=== PATIENT | female | born 1955 | race Caucasian/White ===

== ENCOUNTER 2017-09-15 10:11 | Day surgery (SDC) | payer BC ==
[~2017-09-15 10:11] MED LIST: Bupivacaine 0.25%/EPINEPHrine 1:200,000 10 ML SDV INJECT ONE; Bupivacaine 0.5% 10 ML SDV ONE; Bupivacaine 25%/EPINEPHrine/PF 30 ML ONE; Clindamycin Phosphate in D5W 600 MG in Premix Bag 1 BAG IV ONE; EPINEPHrine 1 MG/ML SDV ONE; Gentamicin 40 MG/ML 2 ML Vial ONE; Lidocaine 2% 5 ML SDV ONE; Midazolam 1 MG/ML 2 ML SDV ONE; Ondansetron 4 MG Tab.DIS PO PRN; Ondansetron 4 MG/2 ML SDV IVPUSH PRN; Ondansetron 4 MG/2 ML SDV ONE; Propofol 200 MG/20 ML SDV ONE; Rocuronium 10 MG/ML 10 ML Syringe ONE; Succinylcholine 200 MG/10 ML MDV ONE; ceFAZolin 1 GM Vial ONE; diphenhydrAMINE 25 MG Cap PO PRN; fentaNYL 250 MCG/5 ML SDV ONE
--- NOTE | 2017-09-15 10:39 | PCM.PREANE ---
Preanesthetic Assessment - Anesthesia/Transfusion/Family Hx Anesthesia History: Prior Anesthesia Without Reaction Other Type of Anesthesia Reaction Comment: limited jaw opening due to previous surgery for TMJ Family History of Anesthesia Reaction: No Transfusion History: No Prior Transfusion(s) - Review of Systems General: No Symptoms Pulmonary: No Symptoms Cardiovascular: No Symptoms Gastrointestinal: No Symptoms Neurological: No Symptoms Other: Reports: None - Physical Assessment NPO Status Date: 09/14/17 O2 Sat by Pulse Oximetry: 98 Respiratory Rate: 16 Vital Signs: Last Vital Signs Temp 36.5 C 09/15/17 10:31 Pulse 88 09/15/17 10:31 Resp 16 09/15/17 10:31 BP 143/77 H 09/15/17 10:31 Pulse Ox 98 09/15/17 10:31 Height: 1.7 m Weight: 69.4 kg ASA Class: 2 Mental Status: Alert & Oriented x3 Airway Class: Mallampati = 3 Dentition: Reports: Normal Dentition ROM/Head Extension: Limited/Partial Lungs: Clear to Auscultation, Normal Respiratory Effort Cardiovascular: Regular Rate, Regular Rhythm - Allergies Allergies/Adverse Reactions: Allergies Allergy/AdvReac Type Severity Reaction Status Date / Time morphine Allergy Nausea Verified 09/11/17 12:27 Penicillins Allergy Anaphylactic Verified 09/11/17 12:27 Shock - Anesthesia Plan Pre-Op Medication Ordered: None - Acknowledgements Anesthesia Type Planned: General Anesthesia Pt an Appropriate Candidate for the Planned Anesthesia: Yes Alternatives and Risks of Anesthesia Discussed w Pt/Guardian: Yes Pt/Guardian Understands and Agrees with Anesthesia Plan: Yes Additional Comments: has limited mouth opening but can open 2 fingerbreaths, should be able to use videolaryngoscopy for intubation. PreAnesthesia Questionnaire HEENT History: Reports: Other (See Below) Other HEENT History: wears glasses Gastrointestinal History: Reports: None Genitourinary History: Reports: None Musculoskeletal History: Reports: Arthritis Neurological History: Reports: Migraines Oncologic (Cancer) History: Reports: Breast - Past Surgical History Head Surgeries/Procedures: Reports: Other (See Below) Other HEENT Surgeries/Procedures: had major jaw surgery due to TMJ, (plate and screws in jaw) GI Surgical History: Reports: Appendectomy Female Surgical History: Reports: Breast Biopsy, Hysterectomy Other Female Surgeries/Procedures: hx laparotomy with oophorectomy and appy, hysterectomy, breast lumpectomy with sentinel node bx, otto cath placement for breast cancer tx, and removal of port, - SUBSTANCE USE Smoking Status *Q: Never Smoker Recreational Drug Use History: No - HOME MEDS Home Medications: Home Meds Alendronate Sodium 70 mg PO WEEKLY 09/11/17 [History] Calcium Carbonate/Vitamin D3 [Calcium 600 + Vit D Tablet] 2 tab PO BID 09/11/17 [History] Cholecalciferol (Vitamin D3) [Vitamin D3] 5,000 units PO DAILY 09/11/17 [History ] Ibuprofen 1 tab PO ASDIRECTED PRN 09/11/17 [History] Magnesium Citrate 400 mg PO DAILY 09/11/17 [History] Multivitamin [Multivitamins] 1 tab PO DAILY 09/11/17 [History] - CURRENT (IN HOUSE) MEDS Current Meds: Current Medications Diphenhydramine HCl (Benadryl) 25 mg PO Q6H PRN PRN Reason: Itching Hydromorphone HCl (Dilaudid) 0.5 mg IVPUSH Q2H PRN PRN Reason: pain severe Lactated Ringer's (Ringers, Lactated) 1,000 mls @ 125 mls/hr IV ASDIRECTED NIKITA Ibuprofen (Motrin) 600 mg PO Q6H PRN PRN Reason: pain - moderate Ondansetron HCl (Zofran Odt) 4 mg PO Q4H PRN PRN Reason: Nausea/Vomiting Ondansetron HCl (Zofran) 4 mg IVPUSH Q4H PRN PRN Reason: Nausea Discontinued Medications Bacitracin (Bacitracin) Confirm Administered Dose 50,000 units .ROUTE .STK-MED ONE Stop: 09/15/17 09:11 Bupivacaine HCl (Sensorcaine-Mpf 0.5%) Confirm Administered Dose 10 ml .ROUTE .STK-MED ONE Stop: 09/15/17 07:15 Bupivacaine HCl/Epinephrine Bitart (Marcaine 0.25%/Epinephrine 1:200,000) 10 ml INJECT ONETIME ONE Stop: 09/15/17 08:01 Cefazolin Sodium (Ancef) Confirm Administered Dose 1 gm .ROUTE .STK-MED ONE Stop: 09/15/17 09:10 Epinephrine HCl (Adrenalin) Confirm Administered Dose 1 mg .ROUTE .STK-MED ONE Stop: 09/15/17 09:10 Fentanyl (Sublimaze) Confirm Administered Dose 250 mcg .ROUTE .STK-MED ONE Stop: 09/15/17 08:12 Gentamicin Sulfate (Gentamicin) Confirm Administered Dose 80 mg .ROUTE .STK-MED ONE Stop: 09/15/17 09:09 Clindamycin Phosphate 600 mg/ (Premix) 50 mls @ 150 mls/hr IV ONETIME ONE Stop: 09/15/17 08:19 Bupivacaine HCl/Epinephrine Bitart (Sensorc Mpf 0.25%-Epi 1:690888) Confirm Administered Dose 30 mls @ as directed .ROUTE .STK-MED ONE Stop: 09/15/17 07:15 Bupivacaine HCl/Epinephrine Bitart (Sensorc Mpf 0.25%-Epi 1:290626) Confirm Administered Dose 30 mls @ as directed .ROUTE .STK-MED ONE Stop: 09/15/17 09:11 Lidocaine (Xylocaine-Mpf 2%) Confirm Administered Dose 5 ml .ROUTE .STK-MED ONE Stop: 09/15/17 08:12 Midazolam HCl (Versed 1 Mg/Ml) Confirm Administered Dose 2 mg .ROUTE .STK-MED ONE Stop: 09/15/17 08:12 Ondansetron HCl (Zofran) Confirm Administered Dose 4 mg .ROUTE .STK-MED ONE Stop: 09/15/17 08:12 Propofol (Diprivan 20 Ml) Confirm Administered Dose 200 mg .ROUTE .STK-MED ONE Stop: 09/15/17 08:12 Rocuronium [place] (Zemuron) Confirm Administered Dose 100 mg .ROUTE .STK-MED ONE Stop: 09/15/17 08:12 Succinylcholine Chloride (Quelicin) Confirm Administered Dose 200 mg .ROUTE .STK -MED ONE Stop: 09/15/17 08:12
[2017-09-15] MEDS: Lactated Ringers 1,000 ML IV SCH ×2 (10:55→17:54)
[2017-09-15] MEDS ORDERED: ePHEDrine 50 MG/ML SDV ONE (11:20)
[2017-09-15] MEDS ORDERED: fentaNYL 100 MCG/2 ML SDV IVPUSH PRN (11:41)
[2017-09-15] MEDS ORDERED: Glycopyrrolate 0.2 MG/ML SDV ONE ×2 (11:52→13:49)
[2017-09-15] MEDS ORDERED: fentaNYL 250 MCG/5 ML SDV ONE (12:08)
[2017-09-15] MEDS ORDERED: Neostigmine Methylsulfate 1 MG/ML 5 ML Syringe ONE (13:49)
[2017-09-15] MEDS ORDERED: HYDROmorphone 2 MG/ML SDV ONE (13:54)
[2017-09-15] MEDS ORDERED: Dexamethasone 4 MG/ML 5 ML MDV ONE (13:55)
--- NOTE | 2017-09-15 14:52 | PCM.OPNOTE ---
- General Post-Op/Procedure Note Date of Surgery/Procedure: 09/15/17 Operative Procedure(s): Right breast mastectomy - Dr Garcia. Right breast immediate breast reconstruction with implant reconstruction with allomax and left breast lift for symmetry. 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
--- NOTE | 2017-09-15 14:54 | PCM.POSTAN ---
POST ANESTHESIA ASSESSMENT - MENTAL STATUS Mental Status: Alert - RESPIRATORY Respiratory Status: Respiratory Rate WNL - CARDIOVASCULAR CV Status: Pulse Rate WNL - GASTROINTESTINAL GI Status: No Symptoms - POST OP HYDRATION Hydration Status: Adequate & Stable
--- NOTE | 2017-09-15 15:04 | MY ---
EXAMINATION: Right breast specimen mammogram HISTORY: Postop COMPARISON: 08/02/2017 TECHNIQUE: Single image provided FINDINGS/IMPRESSION: A specimen mammogram demonstrates the clip and calcifications of concern near th e center of the sample.
[2017-09-15] MEDS: Ibuprofen 600 MG Tab PO PRN ×2 (17:10→18:53)
[2017-09-15] MEDS ORDERED: Promethazine 25 MG Tab PO PRN (17:35)
[2017-09-15] MEDS ORDERED: Scopolamine 1.5 MG Transdermal Patch TRDERM PRN (17:35)
[2017-09-15] MEDS ORDERED: Acetaminophen/HYDROcodone 325-5 MG Tab PO PRN (17:35)
[2017-09-15] MEDS ORDERED: Promethazine 25 MG/ML SDV IM ONE (18:19)
[2017-09-15] MEDS: HYDROmorphone 1 MG/ML Syringe IVPUSH PRN (19:46)
--- NOTE | 2017-09-15 20:17 | OR ---
SURGEON: RUTH EHSS MD DATE OF PROCEDURE: 09/15/2017 PREOPERATIVE DIAGNOSIS: Ductal carcinoma in situ of right breast. POSTOPERATIVE DIAGNOSIS: Ductal carcinoma in situ of right breast. PROCEDURE PERFORMED: Right breast mastectomy. FACING GRINDER: MARGIE Jimenez SECONDARY SURGEON: Denisse Obrien MD ESTIMATED BLOOD LOSS: 25 mL. FLUIDS: See anesthesia record. FINDINGS: Right breast mastectomy. COMPLICATIONS: None. INDICATIONS: The patient is a 62-year-old female with a past medical history significant for right-sided breast cancer. She had undergone a lumpectomy and radiation. She now presents with DCIS of the right breast. Given her previous radiation exposure, she is no longer a candidate for a lumpectomy and will need to undergo a mastectomy. The patient met with me regarding this. She visited with our plastic surgeon and after discussion of the risks and benefits, would like to undergo a right mastectomy with immediate breast reconstruction. I explained the procedure, expected perioperative course, and risks including bleeding, infection, or damage to surrounding structures. The patient visited with Dr. Denisse Obrien regarding the portion of the procedure with her. She verbalized understanding and wishes to proceed. PROCEDURE IN DETAIL: The patient was brought to the operating room and placed on the OR table in supine position. A time-out was completed verifying the patient's name, age, date of , allergies, and procedure to be performed. General endotracheal anesthesia was induced. The chest was prepped and draped in usual standard fashion. I anesthetized the area of my incision with 0.5% Marcaine plain. A 10 blade was used to make an elliptical incision around the patient's previous lumpectomy scar. Cautery was used to dissect down to the level of the subcutaneous fat. Skin flaps were then raised superiorly, medially, inferior, and laterally within the fascial plane between the adipose tissue of the breast and skin. The skin flaps were then raised and the dissection taken down to the chest wall. Laterally, this was taken down the lateral border of the latissimus dorsi muscle. Superiorly, it was taken to the level of the clavicle and medially was taken to the border of the sternum, and anteriorly to the inframammary breast ridge. The breast tissue was then taken off the chest wall in medial to lateral fashion. The pathology specimen was then marked for orientation. The previous scar and associated skin were anterior. A double short silk suture was placed at the 12 o'clock position. A double long suture was placed in the 3 o'clock position. A single looped suture was placed in the 6 o'clock position and a single long suture was placed in the 9 o'clock position. This was then sent to pathology. Electrocautery was used to achieve hemostasis. The case was then turned over to Dr. Denisse Obrien, and her department assistant, Yanni Foster. Please see her dictation for the remainder of the case. LINDA ROMERO /[id number]
[2017-09-15] MEDS: Cyclobenzaprine 5 MG Tab PO SCH (21:59)
[2017-09-16] MEDS: Lactated Ringers 1,000 ML IV SCH (02:02)
[2017-09-16] MEDS: HYDROmorphone 1 MG/ML Syringe IVPUSH PRN (02:03)
[2017-09-16] MEDS: Cyclobenzaprine 5 MG Tab PO SCH (06:34)
--- NOTE | 2017-09-16 07:15 | PCM48HPAN ---
Post Anesthesia Note - EVALUATION WITHIN 48HRS OF ANESTHETIC Vital Signs in Normal Range: Yes Patient Participated in Evaluation: Yes Respiratory Function Stable: Yes Airway Patent: Yes Cardiovascular Function Stable: Yes Hydration Status Stable: Yes Pain Control Satisfactory: Yes Nausea and Vomiting Control Satisfactory: Yes Mental Status Recovered: Yes Resp Rate: 18
--- NOTE | 2017-09-16 08:27 | PCM.DCSUM1 ---
Discharge Summary - Discharge Data Discharge Disposition: Home, Self-Care 01 Condition: Good - Discharge Diagnosis/Problem(s) (1) DCIS (ductal carcinoma in situ) of breast SNOMED Code(s): 623336941, 629848146 ICD Code: D05.10 - INTRADUCTAL CARCINOMA IN SITU OF UNSPECIFIED BREAST Status: Acute Current Visit: Yes - Patient Summary/Data Operative Procedure(s) Performed: Right breast mastectomy - Dr Garcia. Right breast immediate breast reconstruction with implant reconstruction with allomax and left breast lift for symmetry. - Dr Obrien - Discharge Plan *PRESCRIPTION DRUG MONITORING PROGRAM REVIEWED*: No *COPY OF PRESCRIPTION DRUG MONITORING REPORT IN PATIENT SHAAN: No Prescriptions/Med Rec: Ibuprofen 600 mg PO Q6HR PRN #30 tablet PRN Reason: Pain Cyclobenzaprine [Flexeril] 5 mg PO TID #30 tablet Home Medications: Home Meds Alendronate Sodium 70 mg PO WEEKLY 09/11/17 [History] Calcium Carbonate/Vitamin D3 [Calcium 600 + Vit D Tablet] 2 tab PO BID 09/11/17 [History] Cholecalciferol (Vitamin D3) [Vitamin D3] 5,000 units PO DAILY 09/11/17 [History ] Ibuprofen 1 tab PO ASDIRECTED PRN 09/11/17 [History] Magnesium Citrate 400 mg PO DAILY 09/11/17 [History] Multivitamin [Multivitamins] 1 tab PO DAILY 09/11/17 [History] Cyclobenzaprine [Flexeril] 5 mg PO TID #30 tablet 09/16/17 [Rx] Ibuprofen 600 mg PO Q6HR PRN #30 tablet 09/16/17 [Rx] Patient Handouts: Skin Sparing Mastectomy, Care After Referrals: Denisse Obrien MD [Physician] - 09/19/17 1:45 pm - Patient Data Vitals - Most Recent: Last Vital Signs Temp 36.3 C 09/16/17 04:11 Pulse 78 09/16/17 04:11 Resp 18 09/16/17 07:14 BP 95/52 L 09/16/17 04:11 Pulse Ox 96 09/16/17 04:11 Weight - Most Recent: 69.4 kg I&O - Last 24 hours: Intake & Output 09/15/17 09/16/17 09/16/17 22:59 06:59 14:59 Intake Total 0 2200 Output Total 15 2036 Balance -15 163 Med Orders - Current: Current Medications Hydrocodone Bitart/Acetaminophen ([place] 325-5 Mg) 0 tab PO Q4H PRN PRN Reason: Pain (moderate 4-6) Cyclobenzaprine HCl (Flexeril) 5 mg PO TID [facility] Last Admin: 09/16/17 06:34 Dose: 5 mg Diphenhydramine HCl (Benadryl) 25 mg PO Q6H PRN PRN Reason: Itching Fentanyl (Sublimaze) 50 mcg IVPUSH Q5M PRN PRN Reason: Pain (severe 7-10) Stop: 09/16/17 11:41 Hydromorphone HCl (Dilaudid) 0.5 mg IVPUSH Q2H PRN PRN Reason: pain severe Last Admin: 09/16/17 02:03 Dose: 0.5 mg Lactated Ringer's (Ringers, Lactated) 1,000 mls @ 125 mls/hr IV ASDIRECTED [facility] Last Admin: 09/16/17 02:02 Dose: 125 mls/hr Ibuprofen (Motrin) 600 mg PO Q6H PRN PRN Reason: pain - moderate Last Admin: 09/15/17 18:53 Dose: 600 mg Ondansetron HCl (Zofran Odt) 4 mg PO Q4H PRN PRN Reason: Nausea/Vomiting Ondansetron HCl (Zofran) 4 mg IVPUSH Q4H PRN PRN Reason: Nausea Last Admin: 09/15/17 17:12 Dose: 4 mg Promethazine HCl (Phenergan) 25 mg PO Q6H PRN PRN Reason: Nausea/Vomiting Scopolamine (Transderm-Scop) 1.5 mg TRDERM Q72H PRN PRN Reason: Nausea/Vomiting Last Admin: 09/15/17 17:47 Dose: 1.5 mg Discontinued Medications Bacitracin (Bacitracin) Confirm Administered Dose 50,000 units .ROUTE .STK-MED ONE Stop: 09/15/17 09:11 Bupivacaine HCl (Sensorcaine-Mpf 0.5%) Confirm Administered Dose 10 ml .ROUTE .STK-MED ONE Stop: 09/15/17 07:15 Bupivacaine HCl/Epinephrine Bitart (Marcaine 0.25%/Epinephrine 1:200,000) 10 ml INJECT ONETIME ONE Stop: 09/15/17 08:01 Last Admin: 09/15/17 15:48 Dose: Not Given Cefazolin Sodium (Ancef) Confirm Administered Dose 1 gm .ROUTE .STK-MED ONE Stop: 09/15/17 09:10 Dexamethasone (Dexamethasone) Confirm Administered Dose 20 mg .ROUTE .ST-MED ONE Stop: 09/15/17 13:56 Ephedrine Sulfate (Ephedrine Sulfate) Confirm Administered Dose 50 mg .ROUTE .STK-MED ONE Stop: 09/15/17 11:21 Epinephrine HCl (Adrenalin) Confirm Administered Dose 1 mg .ROUTE .STK-MED ONE Stop: 09/15/17 09:10 Fentanyl (Sublimaze) Confirm Administered Dose 250 mcg .ROUTE .STK-MED ONE Stop: 09/15/17 08:12 Fentanyl (Sublimaze) Confirm Administered Dose 250 mcg .ROUTE .STK-MED ONE Stop: 09/15/17 12:09 Gentamicin Sulfate (Gentamicin) Confirm Administered Dose 80 mg .ROUTE .ST-MED ONE Stop: 09/15/17 09:09 Glycopyrrolate (Robinul) Confirm Administered Dose 0.2 mg .ROUTE .STK-MED ONE Stop: 09/15/17 11:53 Glycopyrrolate (Robinul) Confirm Administered Dose 0.4 mg .ROUTE .STK-MED ONE Stop: 09/15/17 13:50 Hydromorphone HCl (Dilaudid) Confirm Administered Dose 2 mg .ROUTE .STK-MED ONE Stop: 09/15/17 13:55 Clindamycin Phosphate 600 mg/ (Premix) 50 mls @ 150 mls/hr IV ONETIME ONE Stop: 09/15/17 08:19 Last Admin: 09/15/17 10:57 Dose: 150 mls/hr Bupivacaine HCl/Epinephrine Bitart (Sensorc Mpf 0.25%-Epi 1:510417) Confirm Administered Dose 30 mls @ as directed .ROUTE .ST-MED ONE Stop: 09/15/17 07:15 Bupivacaine HCl/Epinephrine Bitart (Sensorc Mpf 0.25%-Epi 1:655059) Confirm Administered Dose 30 mls @ as directed .ROUTE .STK-MED ONE Stop: 09/15/17 09:11 Lidocaine (Xylocaine-Mpf 2%) Confirm Administered Dose 5 ml .ROUTE .STK-MED ONE Stop: 09/15/17 08:12 Midazolam HCl (Versed 1 Mg/Ml) Confirm Administered Dose 2 mg .ROUTE .STK-MED ONE Stop: 09/15/17 08:12 Neostigmine Methylsulfate (Neostigmine) Confirm Administered Dose 5 mg .ROUTE .STK-MED ONE Stop: 09/15/17 13:50 Ondansetron HCl (Zofran) Confirm Administered Dose 4 mg .ROUTE .ST-MED ONE Stop: 09/15/17 08:12 Promethazine HCl (Phenergan) 25 mg IM ONETIME ONE Stop: 09/15/17 18:20 Last Admin: 09/15/17 18:33 Dose: 25 mg Propofol (Diprivan 20 Ml) Confirm Administered Dose 200 mg .ROUTE .ST-MED ONE Stop: 09/15/17 08:12 Rocuronium [place] (Zemuron) Confirm Administered Dose 100 mg .ROUTE .STK-MED ONE Stop: 09/15/17 08:12 Succinylcholine Chloride (Quelicin) Confirm Administered Dose 200 mg .ROUTE .ST -MED ONE Stop: 09/15/17 08:12
--- NOTE | 2017-09-16 08:54 | PCM.PN ---
- General Info Date of Service: 09/16/17 Admission Dx/Problem (Free Text): DCIS right breast - s/p mastectomy right and left symmetry. POD 1 Functional Status: Reports: Pain Controlled, Tolerating Diet, Ambulating, Urinating - Review of Systems General: Reports: No Symptoms HEENT: Reports: No Symptoms Pulmonary: Reports: No Symptoms Musculoskeletal: Reports: Other (muscle pain in the right chest. Otherwise doing well. ) Skin: Reports: No Symptoms, Other (mild darkness of the thinner are of the right skin flap - upper. ) Neurological: Reports: No Symptoms - Patient Data Vitals - Most Recent: Last Vital Signs Temp 97.4 F 09/16/17 04:11 Pulse 78 09/16/17 04:11 Resp 18 09/16/17 07:14 BP 95/52 L 09/16/17 04:11 Pulse Ox 96 09/16/17 04:11 Weight - Most Recent: 153 lb I&O - Last 24 Hours: Intake & Output 09/15/17 09/16/17 09/16/17 23:59 07:59 15:59 Intake Total 0 2200 Output Total 15 7 Balance -15 163 Med Orders - Current: Current Medications Hydrocodone Bitart/Acetaminophen ([place] 325-5 Mg) 0 tab PO Q4H PRN PRN Reason: Pain (moderate 4-6) Cyclobenzaprine HCl (Flexeril) 5 mg PO TID [facility] Last Admin: 09/16/17 06:34 Dose: 5 mg Diphenhydramine HCl (Benadryl) 25 mg PO Q6H PRN PRN Reason: Itching Fentanyl (Sublimaze) 50 mcg IVPUSH Q5M PRN PRN Reason: Pain (severe 7-10) Stop: 09/16/17 11:41 Hydromorphone HCl (Dilaudid) 0.5 mg IVPUSH Q2H PRN PRN Reason: pain severe Last Admin: 09/16/17 02:03 Dose: 0.5 mg Lactated Ringer's (Ringers, Lactated) 1,000 mls @ 125 mls/hr IV ASDIRECTED [facility] Last Admin: 09/16/17 02:02 Dose: 125 mls/hr Ibuprofen (Motrin) 600 mg PO Q6H PRN PRN Reason: pain - moderate Last Admin: 09/15/17 18:53 Dose: 600 mg Ondansetron HCl (Zofran Odt) 4 mg PO Q4H PRN PRN Reason: Nausea/Vomiting Ondansetron HCl (Zofran) 4 mg IVPUSH Q4H PRN PRN Reason: Nausea Last Admin: 09/15/17 17:12 Dose: 4 mg Promethazine HCl (Phenergan) 25 mg PO Q6H PRN PRN Reason: Nausea/Vomiting Scopolamine (Transderm-Scop) 1.5 mg TRDERM Q72H PRN PRN Reason: Nausea/Vomiting Last Admin: 09/15/17 17:47 Dose: 1.5 mg Discontinued Medications Bacitracin (Bacitracin) Confirm Administered Dose 50,000 units .ROUTE .STK-MED ONE Stop: 09/15/17 09:11 Bupivacaine HCl (Sensorcaine-Mpf 0.5%) Confirm Administered Dose 10 ml .ROUTE .STK-MED ONE Stop: 09/15/17 07:15 Bupivacaine HCl/Epinephrine Bitart (Marc[place] 0.25%/Epinephrine 1:200,000) 10 ml INJECT ONETIME ONE Stop: 09/15/17 08:01 Last Admin: 09/15/17 15:48 Dose: Not Given Cefazolin Sodium (Ancef) Confirm Administered Dose 1 gm .ROUTE .STK-MED ONE Stop: 09/15/17 09:10 Dexamethasone (Dexamethasone) Confirm Administered Dose 20 mg .ROUTE .STK-MED ONE Stop: 09/15/17 13:56 Ephedrine Sulfate (Ephedrine Sulfate) Confirm Administered Dose 50 mg .ROUTE .STK-MED ONE Stop: 09/15/17 11:21 Epinephrine HCl (Adrenalin) Confirm Administered Dose 1 mg .ROUTE .STK-MED ONE Stop: 09/15/17 09:10 Fentanyl (Sublimaze) Confirm Administered Dose 250 mcg .ROUTE .STK-MED ONE Stop: 09/15/17 08:12 Fentanyl (Sublimaze) Confirm Administered Dose 250 mcg .ROUTE .STK-MED ONE Stop: 09/15/17 12:09 Gentamicin Sulfate (Gentamicin) Confirm Administered Dose 80 mg .ROUTE .STK-MED ONE Stop: 09/15/17 09:09 Glycopyrrolate (Robinul) Confirm Administered Dose 0.2 mg .ROUTE .STK-MED ONE Stop: 09/15/17 11:53 Glycopyrrolate (Robinul) Confirm Administered Dose 0.4 mg .ROUTE .STK-MED ONE Stop: 09/15/17 13:50 Hydromorphone HCl (Dilaudid) Confirm Administered Dose 2 mg .ROUTE .[facility]-MED ONE Stop: 09/15/17 13:55 Clindamycin Phosphate 600 mg/ (Premix) 50 mls @ 150 mls/hr IV ONETIME ONE Stop: 09/15/17 08:19 Last Admin: 09/15/17 10:57 Dose: 150 mls/hr Bupivacaine HCl/Epinephrine Bitart (Sensorc Mpf 0.25%-Epi 1:408227) Confirm Administered Dose 30 mls @ as directed .ROUTE .[facility]-MED ONE Stop: 09/15/17 07:15 Bupivacaine HCl/Epinephrine Bitart (Sensorc Mpf 0.25%-Epi 1:542882) Confirm Administered Dose 30 mls @ as directed .ROUTE .[facility]-MED ONE Stop: 09/15/17 09:11 Lidocaine (Xylocaine-Mpf 2%) Confirm Administered Dose 5 ml .ROUTE .ST-MED ONE Stop: 09/15/17 08:12 Midazolam HCl (Versed 1 Mg/Ml) Confirm Administered Dose 2 mg .ROUTE .ST-MED ONE Stop: 09/15/17 08:12 Neostigmine Methylsulfate (Neostigmine) Confirm Administered Dose 5 mg .ROUTE .ST-MED ONE Stop: 09/15/17 13:50 Ondansetron HCl (Zofran) Confirm Administered Dose 4 mg .ROUTE .ST-MED ONE Stop: 09/15/17 08:12 Promethazine HCl (Phenergan) 25 mg IM ONETIME ONE Stop: 09/15/17 18:20 Last Admin: 09/15/17 18:33 Dose: 25 mg Propofol (Diprivan 20 Ml) Confirm Administered Dose 200 mg .ROUTE .ST-MED ONE Stop: 09/15/17 08:12 Rocuronium [place] (Zemuron) Confirm Administered Dose 100 mg .ROUTE .ST-MED ONE Stop: 09/15/17 08:12 Succinylcholine Chloride (Quelicin) Confirm Administered Dose 200 mg .ROUTE .[facility] -MED ONE Stop: 09/15/17 08:12 - Exam General: Alert, Oriented, Cooperative HEENT: Pupils Reactive Lungs: Normal Respiratory Effort Extremities: Normal Inspection Skin: Warm, Dry, Intact. No: Ecchymosis Wound/Incisions: Healing Well, Dressing Dry and Intact, Drainage (in GISELA is minimal. ) Neurological: No New Focal Deficit Psy/Mental Status: Alert, Normal Affect, Normal Mood - Problem List & Annotations (1) Admission for breast reconstruction following mastectomy SNOMED Code(s): 547242490, 851286739 Code(s): Z42.1 - ENCOUNTER FOR BREAST RECONSTRUCTION FOLLOWING MASTECTOMY Status: Acute Priority: High Current Visit: Yes (2) DCIS (ductal carcinoma in situ) of breast SNOMED Code(s): 498970633, 406662601 Code(s): D05.10 - INTRADUCTAL CARCINOMA IN SITU OF UNSPECIFIED BREAST Status: Acute Priority: High Current Visit: Yes Qualifiers: Laterality: right Qualified Code(s): D05.11 - Intraductal carcinoma in situ of right breast - Problem List Review Problem List Initiated/Reviewed/Updated: Yes - My Orders Last 24 Hours: My Active Orders 09/15/17 08:00 Lactated Ringers [Ringers, Lactated] 1,000 ml IV ASDIRECTED 09/15/17 14:00 Patient Status [ADT] Routine Drain Management [RC] Q4H HYDROmorphone [Dilaudid] 0.5 mg IVPUSH Q2H PRN 09/15/17 17:35 Acetaminophen/HYDROcodone [[place] 325-5 MG] See Dose Instructions PO Q4H PRN Promethazine [Phenergan] 25 mg PO Q6H PRN Scopolamine [Transderm-Scop] 1.5 mg TRDERM Q72H PRN 09/15/17 22:00 Cyclobenzaprine [Flexeril] 5 mg PO TID 09/15/17 Dinner General [Regular Diet] [DIET] 09/16/17 09:00 Clindamycin HCl [Cleocin] 300 mg PO Q6H - Plan Plan:: Doing well and will continue flexeril and antibiotics. [place] if needed. Follow up next week at scheduled appt. Call Monday am with any changes [phone]. Call hospital over weekend if you need to get in touch with us [phone]. Ambulate at least TID. Drain cares.
[2017-09-16 08:56] VITALS: BP 99/57
[2017-09-16] MEDS ORDERED: Clindamycin HCl 150 MG Cap PO SCH (09:00)
--- NOTE | 2017-09-18 09:58 | PCM.PN ---
- General Info Date of Service: 09/16/17 Functional Status: Reports: Pain Controlled, Tolerating Diet, Ambulating, Urinating - Review of Systems General: Reports: No Symptoms HEENT: Reports: No Symptoms Pulmonary: Reports: No Symptoms Cardiovascular: Reports: No Symptoms Gastrointestinal: Reports: No Symptoms Skin: Reports: No Symptoms Psychiatric: Reports: No Symptoms - Patient Data Vitals - Most Recent: Last Vital Signs Temp 36.6 C 09/16/17 08:00 Pulse 83 09/16/17 08:00 Resp 18 09/16/17 08:00 BP 99/57 L 09/16/17 08:00 Pulse Ox 96 09/16/17 08:00 Weight - Most Recent: 69.4 kg Med Orders - Current: Current Medications Discontinued Medications Hydrocodone Bitart/Acetaminophen (Cactus 325-5 Mg) 0 tab PO Q4H PRN PRN Reason: Pain (moderate 4-6) Bacitracin (Bacitracin) Confirm Administered Dose 50,000 units .ROUTE .STK-MED ONE Stop: 09/15/17 09:11 Bupivacaine HCl (Sensorcaine-Mpf 0.5%) Confirm Administered Dose 10 ml .ROUTE .STK-MED ONE Stop: 09/15/17 07:15 Bupivacaine HCl/Epinephrine Bitart (Marcaine 0.25%/Epinephrine 1:200,000) 10 ml INJECT ONETIME ONE Stop: 09/15/17 08:01 Last Admin: 09/15/17 15:48 Dose: Not Given Cefazolin Sodium (Ancef) Confirm Administered Dose 1 gm .ROUTE .STK-MED ONE Stop: 09/15/17 09:10 Clindamycin HCl (Cleocin) 300 mg PO Q6H [facility] Last Admin: 09/16/17 09:23 Dose: 300 mg Cyclobenzaprine HCl (Flexeril) 5 mg PO TID [facility] Last Admin: 09/16/17 06:34 Dose: 5 mg Dexamethasone (Dexamethasone) Confirm Administered Dose 20 mg .ROUTE .STK-MED ONE Stop: 09/15/17 13:56 Diphenhydramine HCl (Benadryl) 25 mg PO Q6H PRN PRN Reason: Itching Ephedrine Sulfate (Ephedrine Sulfate) Confirm Administered Dose 50 mg .ROUTE .STK-MED ONE Stop: 09/15/17 11:21 Epinephrine HCl (Adrenalin) Confirm Administered Dose 1 mg .ROUTE .STK-MED ONE Stop: 09/15/17 09:10 Fentanyl (Sublimaze) Confirm Administered Dose 250 mcg .ROUTE .STK-MED ONE Stop: 09/15/17 08:12 Fentanyl (Sublimaze) 50 mcg IVPUSH Q5M PRN PRN Reason: Pain (severe 7-10) Stop: 09/16/17 11:41 Fentanyl (Sublimaze) Confirm Administered Dose 250 mcg .ROUTE .STK-MED ONE Stop: 09/15/17 12:09 Gentamicin Sulfate (Gentamicin) Confirm Administered Dose 80 mg .ROUTE .STK-MED ONE Stop: 09/15/17 09:09 Glycopyrrolate (Robinul) Confirm Administered Dose 0.2 mg .ROUTE .STK-MED ONE Stop: 09/15/17 11:53 Glycopyrrolate (Robinul) Confirm Administered Dose 0.4 mg .ROUTE .STK-MED ONE Stop: 09/15/17 13:50 Hydromorphone HCl (Dilaudid) 0.5 mg IVPUSH Q2H PRN PRN Reason: pain severe Last Admin: 09/16/17 02:03 Dose: 0.5 mg Hydromorphone HCl (Dilaudid) Confirm Administered Dose 2 mg .ROUTE .STK-MED ONE Stop: 09/15/17 13:55 Clindamycin Phosphate 600 mg/ (Premix) 50 mls @ 150 mls/hr IV ONETIME ONE Stop: 09/15/17 08:19 Last Admin: 09/15/17 10:57 Dose: 150 mls/hr Lactated Ringer's (Ringers, Lactated) 1,000 mls @ 125 mls/hr IV ASDIRECTED [facility] Last Admin: 09/16/17 02:02 Dose: 125 mls/hr Bupivacaine HCl/Epinephrine Bitart (Sensorc Mpf 0.25%-Epi [id number]) Confirm Administered Dose 30 mls @ as directed .ROUTE .STK-MED ONE Stop: 09/15/17 07:15 Bupivacaine HCl/Epinephrine Bitart (Sensorc Mpf 0.25%-Epi 1:[id number]) Confirm Administered Dose 30 mls @ as directed .ROUTE .STK-MED ONE Stop: 09/15/17 09:11 Ibuprofen (Motrin) 600 mg PO Q6H PRN PRN Reason: pain - moderate Last Admin: 09/15/17 18:53 Dose: 600 mg Lidocaine (Xylocaine-Mpf 2%) Confirm Administered Dose 5 ml .ROUTE .STK-MED ONE Stop: 09/15/17 08:12 Midazolam HCl (Versed 1 Mg/Ml) Confirm Administered Dose 2 mg .ROUTE .STK-MED ONE Stop: 09/15/17 08:12 Neostigmine Methylsulfate (Neostigmine) Confirm Administered Dose 5 mg .ROUTE .STK-MED ONE Stop: 09/15/17 13:50 Ondansetron HCl (Zofran Odt) 4 mg PO Q4H PRN PRN Reason: Nausea/Vomiting Ondansetron HCl (Zofran) 4 mg IVPUSH Q4H PRN PRN Reason: Nausea Last Admin: 09/15/17 17:12 Dose: 4 mg Ondansetron HCl (Zofran) Confirm Administered Dose 4 mg .ROUTE .STK-MED ONE Stop: 09/15/17 08:12 Promethazine HCl (Phenergan) 25 mg PO Q6H PRN PRN Reason: Nausea/Vomiting Promethazine HCl (Phenergan) 25 mg IM ONETIME ONE Stop: 09/15/17 18:20 Last Admin: 09/15/17 18:33 Dose: 25 mg Propofol (Diprivan 20 Ml) Confirm Administered Dose 200 mg .ROUTE .STK-MED ONE Stop: 09/15/17 08:12 Rocuronium [place] (Zemuron) Confirm Administered Dose 100 mg .ROUTE .STK-MED ONE Stop: 09/15/17 08:12 Scopolamine (Transderm-Scop) 1.5 mg TRDERM Q72H PRN PRN Reason: Nausea/Vomiting Last Admin: 09/15/17 17:47 Dose: 1.5 mg Succinylcholine Chloride (Quelicin) Confirm Administered Dose 200 mg .ROUTE .STK -MED ONE Stop: 09/15/17 08:12 - Exam Quality Assessment: Supplemental Oxygen General: Alert, Oriented Neck: Supple Lungs: Normal Respiratory Effort Cardiovascular: Regular Rate GI/Abdominal Exam: Soft Extremities: Normal Inspection Skin: Warm, Dry, Intact Wound/Incisions: Healing Well, Dressing Dry and Intact - Problem List & Annotations (1) DCIS (ductal carcinoma in situ) of breast SNOMED Code(s): 897135346, 791767063 Code(s): D05.10 - INTRADUCTAL CARCINOMA IN SITU OF UNSPECIFIED BREAST Status: Acute Priority: High Qualifiers: Laterality: right Qualified Code(s): D05.11 - Intraductal carcinoma in situ of right breast - Problem List Review Problem List Initiated/Reviewed/Updated: Yes - Plan Plan:: Agree with Dr. Obrien's plan below. Will follow up with general surgery in 2 weeks. Doing well and will continue flexeril and antibiotics. Cactus if needed. Follow up next week at scheduled appt. Call Monday am with any changes [phone]. Call hospital over weekend if you need to get in touch with us [phone]. Ambulate at least TID. Drain cares.
--- NOTE | 2017-09-18 11:42 | OR ---
SURGEON: DAVID OBRIEN MD DATE OF PROCEDURE: 09/15/2017 PREOPERATIVE DIAGNOSIS: Right breast ductal carcinoma in situ, in need for breast reconstruction. POSTOPERATIVE DIAGNOSIS: Right breast ductal carcinoma in situ, in need for breast reconstruction. PROCEDURES: 1. Right breast mastectomy for Dr. Garcia. 2. Right breast immediate breast reconstruction with implant, immediate placement and AlloMax. 3. Left breast lift for symmetry with Dr. Obrien. ANESTHESIA: General ET tube with local. STEP DOWN NURSE: MARGIE Jimenez INDICATIONS: Ms. Wade is a 62-year-old female seen today in evaluation for right breast DCIS. Mastectomy was performed by Dr. Garcia and then our portion of the procedure was discussed. She would like immediate breast reconstruction with an implant and AlloMax as well as left breast lift for symmetry. After risks and benefits were discussed with her and all questions were answered, informed consent was obtained. We did assist Dr. Garcia with her portion of the mastectomy and a separate setup was used for our reconstructive procedure. PROCEDURE IN DETAIL: After informed consent was obtained and placed on the chart, the patient was brought to the operating theater and after adequate mastectomy completed by Dr. Garcia with our assistance, the outer drapes were removed and new setup was used for immediate breast reconstruction. Attention was first paid to the right breast pocket and meticulous hemostasis was again obtained after the area was copiously irrigated. Attention was then paid to elevation of the pectoralis muscle and suturing of the AlloMax, which was done using a pants over vest technique and 3-0 PDS in a [id number] fashion for sparse suturing. A 304 mL implant was used as a spacer here. Once adequately sutured in place, the patient was sat up and the 304 mL implant was appreciated to be too small. Attention was then paid to placement of the 410 mL spacer which was deemed to be appropriate. The closest implant was 420 mL and thus this was opened and under a no-touch technique using the [place] funnel was placed into the implant pocket. Final suturing was placed at the lateral margin for closure of the pocket and a size 7 GISELA drain was placed underneath the AlloMax and above and a second placed above the AlloMax and brought out at the lateral aspect of the breast. This was sutured in place using a 3-0 Prolene. Once adequately sutured in place, attention was then paid to redraping of the skin and closure using a deep 3-0 Stratafix and a 4-0 running for the skin. Some mildly thin flaps at the medial 2 o'clock position of the incision. Once the right breast was closed, attention was then paid to the left breast symmetry procedure. The patient was brought into the supine position and the breast markings for standard vertical lift were tacked into place. Minor adjustments were made and an inferior extension was completed. The patient was then laid into the supine position. [place] were removed after marking appropriately and cuts were made for removal of the excess skin. Dissection of a superior medial pedicle was undertaken and this was rotated then into place after de-epithelialization of the pedicle and circumferential dissection around with removal of a small amount of breast tissue at the inferior pole in order to allow closure. Once adequately removed and tacked back in place, attention was then paid to closure using a deep 3-0 Monocryl Stratafix suture and for the dermis and a running 4-0 Stratafix suture for the skin. The patient tolerated this well and the wounds were dressed with Steri-Strips, fluffs, and a compression bra. The patient tolerated this well and will be maintained in the hospital overnight. All counts and needles were correct at the end of the case. IMPLANTS: Style 15-421 SN [id number] Natrelle silicone implant. FOLLOWUP INSTRUCTIONS: The patient will be maintained in the hospital for pain control and close observation. Hopeful discharge tomorrow. MONALISA / NICK /[id number] VIVIANA
== END 2017-09-16 10:00 | disposition home or self-care (01) ==
LOC: MW.SDS 10:11 → MW.MS 14:35 → MW.SDS 09-16 10:00
PROVIDERS: ATTEND Plastic Surgery
DX: D05.11 Intraductal carcinoma in situ of right breast (principal); Z88.0 Allergy status to penicillin; Z88.5 Allergy status to narcotic agent; Z79.899 Other long term (current) drug therapy
CPT/HCPCS: 19303; 19316; 19340; 76098; 88309; A9270; C1762; C1789; J0171; J0330; J0690; J1100; J1170; J1580; J2250; J2405; J2550; J2704; J3010; J3490; J7120; 00404